=== PATIENT | female | born 1930 | race Caucasian/White ===

== ENCOUNTER 2016-09-23 12:09 | Emergency (ER) | payer OTHER ==
[~2016-09-23] VITALS: Ht 147.3 cm; Wt 80.0 kg
[2016-09-23 12:11] VITALS: Ht 147.3 cm; Wt 80.0 kg
[2016-09-23] MEDS ORDERED: CARV6.2579 PO (12:12)
[2016-09-23] MEDS ORDERED: morphine 4 MG/ML VIAL IV STA (12:12)
[2016-09-23] MEDS ORDERED: LISI10TA2 PO (12:13)
[2016-09-23] MEDS ORDERED: PRAV40TA76 PO (12:14)
[2016-09-23] MEDS ORDERED: NIT4 SL (12:15)
[2016-09-23] MEDS ORDERED: AMIO200T2 PO (12:15)
[2016-09-23] MEDS ORDERED: METF500T4 PO (12:16)
[2016-09-23] MEDS ORDERED: FURO20TA3 PO (12:16)
[2016-09-23] MEDS ORDERED: CHOL500010 PO (12:17)
[2016-09-23] MEDS ORDERED: GLIP5TAB13 PO (12:18)
[2016-09-23] MEDS ORDERED: ASPI-664 PO (12:18)
[2016-09-23 12:28] LABS: BASOPHIL # 0.1 10^3/ul (0.0-0.1); EOSINOPHILS # 0.3 10^3/ul (0.0-0.5); EOSINOPHILS % 4.2 % (0.0-7.0); HEMATOCRIT 34.1 % (37.0-47.0); HEMOGLOBIN 11.2 g/dl (12.0-16.0); LYMPHOCYTES % 13.3 % (15.0-51.0); MEAN CORPUSCULAR HEMOGLOBIN 28.8 pg (29.0-33.0); MEAN CORPUSCULAR HGB CONC 32.8 g/dl (32.0-37.0); MEAN CORPUSCULAR VOLUME 87.7 fl (82.0-101.0); MEAN PLATELET VOLUME 11.7 fl (7.4-10.4); MONOCYTE # 0.5 10^3/ul (0.3-0.9); MONOCYTES % 6.8 % (0.0-11.0); NEUTROPHIL # 5.8 10^3/ul (1.6-7.5); NEUTROPHILS % 74.4 % (39.0-77.0); PLATELET COUNT 184 10^3/UL (140-415); RED BLOOD COUNT 3.89 10^6/ul (4.20-5.40); RED CELL DISTRIBUTION WIDTH 14.6 % (11.5-14.5); WHITE BLOOD COUNT 7.8 10^3/ul (4.8-10.8)
[2016-09-23 12:47] LABS: PARTIAL THROMBOPLASTIN TIME 26.5 Sec (25.0-35.0); PROTIME 13.2 Sec (12.2-14.2)
[2016-09-23 12:55] LABS: ANION GAP 19 (8-16); BLOOD UREA NITROGEN 14 mg/dl (7-20); CALCIUM 9.2 mg/dl (8.4-10.2); CARBON DIOXIDE 25 mmol/L (21-31); CHLORIDE 100 mmol/L (97-110); GLUCOSE 135 mg/dl (70-220); MAGNESIUM 1.2 mg/dl (1.7-2.5); PHOSPHORUS 3.6 mg/dl (2.5-4.9); POTASSIUM 4.4 mmol/L (3.5-5.1); SODIUM 140 mmol/L (135-144)
[2016-09-23 13:08] LABS: TROPONIN-I < 0.012 ng/ml (0.00-0.12)
--- NOTE | 2016-09-23 13:25 | ERA ---
ER Documentation Chief Complaint Date/Time DATE: 09/23/16 TIME: 13:21 Chief Complaint chest pain started after pacemaker shocked her causing pressure pain 12/12 HPI This is an 86-year-old female. 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 She states that earlier, just prior to arrival she started to feel lightheaded. She had a defibrillation shock to the left side of her chest. She now has some chest wall discomfort around the pacemaker and defibrillator's site that is 2 out of 10 currently. The patient denies any prodrome of chest pain or back pain. She denies any headache. No shortness of breath no nausea or vomiting. ROS All systems reviewed and are negative except as per history of present illness. Medications Home Meds Reported Medications Aspirin* (Aspirin* EC) 81 Mg Tablet.dr, 81 MG PO DAILY, TAB 09/23/16 Glipizide* (Glipizide*) 5 Mg Tablet, 2.5 MG PO AC BREAKFAST DINNER, TAB 09/23/16 Cholecalciferol (Vitamin D3) 5,000 Unit Tablet, 5000 UNIT PO DAILY, TAB 09/23/16 Metformin Hcl* (Metformin Hcl*) 500 Mg Tablet, 500 MG PO WITH BREAKFAST DINNE, # 60 TAB 09/23/16 Furosemide* (Furosemide*) 20 Mg Tablet, 20 MG PO BID, #30 TAB 09/23/16 Nitroglycerin* (Nitrostat*) 0.4 Mg Tab.subl, 0.4 MG SL Q5MIN Y for CHEST PAIN, BOTTLE 09/23/16 Amiodarone Hcl* (Amiodarone Hcl*) 200 Mg Tablet, 400 MG PO DAILY, #30 TAB 09/23/16 Pravastatin Sodium* (Pravastatin Sodium*) 40 Mg Tablet, 40 MG PO HS, TAB 09/23/16 Lisinopril* (Lisinopril*) 10 Mg Tablet, 5 MG PO QAM, #30 TAB 09/23/16 Carvedilol* (Carvedilol*) 6.25 Mg Tablet, 6.25 MG PO BID, #60 TAB 09/23/16 Allergies Allergies: Coded Allergies: No Known Allergy (Unverified , 09/23/16) PMhx/Soc History of Surgery: Yes (, cholecystectomy, left chest pacemaker ) Anesthesia Reaction: No Hx Neurological Disorder: No Hx Respiratory Disorders: No Hx Cardiac Disorders: Yes (HTN, CAD) Hx Psychiatric Problems: No Hx Miscellaneous Medical Probl: Yes (DM) Hx Alcohol Use: No Hx Substance Use: No Hx Tobacco Use: No Smoking Status: Never smoker FmHx Family History: No diabetes Physical Exam Vitals Vital Signs Date Time Temp Pulse Resp B/P Pulse Ox O2 Delivery O2 Flow Rate FiO2 09/23/16 12:14 Nasal Cannula 2 09/23/16 12:11 98.2 57 18 138/69 96 Physical Exam General: Well developed, well nourished, no acute distress Head: Normocephalic, atraumatic. Eyes: Pupils equally reactive, EOM intact ENT: Moist mucous membranes Neck: Supple, no lymphadenopathy Respiratory: Lungs clear bilaterally, no distress Cardiovascular: RRR, no murmurs, rubs, or gallops Abdominal: Soft, non-tender, non-distended, no peritoneal signs : Deferred MSK: No edema, no unilateral swelling, 5/5 strength Neurologic: Alert and oriented, moving all extremities, normal speech, no focal weakness, no cerebellar signs Skin: No rash Psych: Normal mood Result Diagram: 09/23/16 1216 09/23/16 1216 Results 24 hrs Laboratory Tests Test 09/23/16 12:16 White Blood Count 7.810^3/ul Red Blood Count 3.8910^6/ul Hemoglobin 11.2g/dl Hematocrit 34.1% Mean Corpuscular Volume 87.7fl Mean Corpuscular Hemoglobin 28.8pg Mean Corpuscular Hemoglobin Concent 32.8g/dl Red Cell Distribution Width 14.6% Platelet Count 55624^3/UL Mean Platelet Volume 11.7fl Neutrophils % 74.4% Lymphocytes % 13.3% Monocytes % 6.8% Eosinophils % 4.2% Basophils % 1.0% Nucleated Red Blood Cells % 0.0/100WBC Neutrophils # 5.810^3/ul Lymphocytes # 1.010^3/ul Monocytes # 0.510^3/ul Eosinophils # 0.310^3/ul Basophils # 0.110^3/ul Nucleated Red Blood Cells # 0.010^3/ul Prothrombin Time 13.2Sec Prothrombin Time Ratio 1.0 INR International Normalized Ratio 1.00 Activated Partial Thromboplast Time 26.5Sec Sodium Level 140mmol/L Potassium Level 4.4mmol/L Chloride Level 100mmol/L Carbon Dioxide Level 25mmol/L Anion Gap 19 Blood Urea Nitrogen 14mg/dl Creatinine 0.90mg/dl Glucose Level 135mg/dl Calcium Level 9.2mg/dl Phosphorus Level 3.6mg/dl Magnesium Level 1.2mg/dl Troponin I < 0.012ng/ml Current Medications Medications (Trade) Dose Ordered Sig/[place] Route PRN Reason Start Time Stop Time Status Last Admin Dose Admin Morphine Sulfate 2 mg 2 mg ONCE STAT IV 09/23/16 12:12 09/23/16 12:14 DC 09/23/16 12:21 Magnesium Sulfate/ Dextrose (Magnesium Sulfate 1 Gm/D5W) 100 ml @ 100 mls/hr ONCE ONCE IVPB 09/23/16 13:30 09/23/16 14:29 Procedures/MDM EKG, MONITORS, & DIAGNOSTIC IMAGING: EKG #1 EKG: I reviewed and interpreted a 12-lead EKG. Rhythm: Normal sinus rhythm Ectopy: None Intervals: No abnormalities ST segments: No elevations or depressions T waves: No contiguous inversions EKG #2 EKG: I reviewed and interpreted a 12-lead EKG. Rhythm: junctional wide complex rhythm Ectopy: None Intervals: wide qrs, ST segments: No elevations or depressions T waves: No contiguous inversions EKG #3 EKG: I reviewed and interpreted a 12-lead EKG. Rhythm: junctional wide complex rhythm Ectopy: None Intervals: wide qrs, ST segments: No elevations or depressions T waves: No contiguous inversions LAB INTERPRETATION: Negative troponin, hypomagnesemia MEDICAL DECISION MAKING: The patient presents with defibrillation and shock after lightheadedness. This is concerning for an SVT or VT with defibrillation. It appears that the patient 's pacemaker defibrillator is working given that the patient had a shock delivery. The patient's EKGs show intermittent normal sinus rhythm and then a junctional wide-complex rhythm without significant tachycardia. The patient is currently taking amiodarone. Amiodarone bolus and drip are unlikely to be beneficial in this case. The patient will benefit from close observation, interrogation of her pacemaker. Optimization of electrolytes would also be appropriate. The patient's pain is improving currently and her pain seems to be only related to the defibrillations site rather than acute angina. The patient does have a history of coronary disease, based on electronic medical record review from [facility] the patient does have an angiogram showing complete LAD nondistended bowel occlusion with a stent to the circumflex. ER COURSE: The patient received aspirin and nitro via EMS. The patient was given morphine for pain. Magnesium was repleted in the emergency room. At this point I feel the patient requires transfer to [facility]. She is chest pain-free and has stabilized. [employer] was notified and will come to interrogate the pacemaker. The patient will benefit from hospitalization, pacemaker interrogation, EP consultation, cardiology consultation and observation to rule out ACS. I kept the patient and/or family informed of laboratory and diagnostic imaging results throughout the emergency room course. DISPOSITION PLAN: Transfer to [facility]. The risks, benefits, alternatives were discussed with the family. In my opinion benefits outweigh the risks. CONSULTATION: Accepting care team and consultations: I discussed the current laboratory data, diagnostic imaging and emergency care provided. Admitting team: Dr. Moran Admitting team indication: Insurance directed Consulting services: [facility] Departure Diagnosis: Primary Impression: Implantable cardioverter-defibrillator discharge Additional Impressions: Chest pain Qualified Code: R07.9 - Chest pain, unspecified type Hypomagnesemia Condition: Stable STEPHANIE ROSA MD Sep 23, 2016 13:25
[2016-09-23] MEDS ORDERED: MAGNESIUM SULFATE 1 GM/D5W 100 ML IVPB ONE (13:30)
[2016-09-23 14:08] VITALS: BP 112/60; PULSE 62; RESP 18; TEMP 98.2
--- NOTE | 2016-09-23 14:15 | RADRPT ---
PROCEDURE: XR Chest. CLINICAL INDICATION: Chest pain TECHNIQUE: Single view of the chest COMPARISON: No prior study is available for comparison. FINDINGS: There is a left-sided cardiac pacing device / AICD. There is moderate enlargement of the cardiac silhouette with atherosclerotic calcifications of the a stevie. There is mild vascular congestion without focal consolidation. There is a questionable 7 mm p ulmonary nodule at the periphery of the left upper lung. There is no pleural effusion. There is no pneumothorax. There is no acute osseous abnormality. IMPRESSION: 1. Questionable 7 mm nodular opacity projecting over the periphery of the left upper lung. Recomme nd non emergent CT scan of the chest for further evaluation to exclude a pulmonary nodule. 2. Moderate enlargement of the cardiac silhouette. 3. Mild pulmonary vascular congestion. 4. Left-sided cardiac pacing device / AICD. 5. No focal consolidation. 6. Atherosclerotic calcifications of the aorta. RPTAT: UU .Andrea Saha MD, MD Date Time Electronically viewed and signed by .Andrea Saha MD, on 09/23/2016 14:15 .K/
== END 2016-09-23 15:24 | disposition short-term general hospital (02) ==
LOC: E/R 12:09
DX: T82.198A Other mechanical complication of other cardiac electronic device, initial encounter (principal); I10 Essential (primary) hypertension; E11.9 Type 2 diabetes mellitus without complications; I25.10 Atherosclerotic heart disease of native coronary artery without angina pectoris; E83.42 Hypomagnesemia; Y71.3 Surgical instruments, materials and cardiovascular devices (including sutures) associated with adverse incidents; Z79.82 Long term (current) use of aspirin; Z79.84 Long term (current) use of oral hypoglycemic drugs
CPT/HCPCS: 36415; 71010; 80048; 83735; 84100; 84484; 85025; 85610; 85730; 93005; 96374; 96375; 99285; J2270; J3475